=== PATIENT | female | born 1960 | race Caucasian/White ===

== ENCOUNTER 2018-06-14 11:09 | Day surgery (SDC) | payer OTHER ==
[2018-06-14] MEDS ORDERED: LIDOCAINE 2% (SDV) 5 ML INJ (12:22)
[2018-06-14] MEDS ORDERED: FENTAnyl 50 MCG/ML VIAL (12:22)
[2018-06-14] MEDS ORDERED: CEFAZOLIN 1 GM INJ (12:22)
[2018-06-14] MEDS ORDERED: PROPOFOL 20 ML (12:22)
[2018-06-14] MEDS ORDERED: MEPERIDINE 25 MG INJ IV (13:00)
[2018-06-14] MEDS ORDERED: OXYCODONE/ACETAMINOPHEN (5/325) TAB PO ×2 (13:00)
[2018-06-14] MEDS ORDERED: hydrALAzine 20 MG INJ IV (13:00)
[2018-06-14] MEDS ORDERED: LABETALOL HCL 20MG INJ IV (13:00)
[2018-06-14] MEDS ORDERED: FENTAnyl 50 MCG/ML VIAL IV ×3 (13:00)
[2018-06-14] MEDS ORDERED: ONDANSETRON 4 MG INJ IV (13:00)
[2018-06-14] MEDS ORDERED: ONDANSETRON 4 MG INJ (13:14)
[2018-06-14] MEDS ORDERED: FAMOTIDINE 20 MG INJ (13:15)
[2018-06-14] MEDS ORDERED: DEXAMETHASONE 4 MG/ML 5 ML INJ (13:15)
[2018-06-14] MEDS ORDERED: METOCLOPRAMIDE 10 MG INJ (13:15)
[2018-06-14] MEDS ORDERED: EPHEDrine SULFATE 50 MG/5 ML SYG (13:43)
== END 2018-06-14 15:45 | disposition home or self-care (01) ==
LOC: SDS 11:09
DX: N85.00 Endometrial hyperplasia, unspecified (principal); I10 Essential (primary) hypertension
CPT/HCPCS: 58558; 84703; 88305